=== PATIENT | male | born 1955 | race Caucasian/White ===

== ENCOUNTER 2016-11-10 05:14 | Inpatient (IN) | payer BC ==
[2016-11-05 10:19] LABS: BASOPHILS 0.2 %; BASOPHILS ABSOLUTE 0.02 10/3/uL (0.0-0.16); EOSINOPHILS 0.9 %; EOSINOPHILS ABSOLUTE 0.08 10/3/uL (0.0-0.53); HEMOGLOBIN 14.2 g/dL (13.6-17.8); IMMATURE GRANULOCYTES 0.2 %; IMMATURE GRANULOCYTES ABSOLUTE 0.02 10/3/uL (0.0-0.11); LYMPHOCYTES 27.9 %; LYMPHOCYTES ABSOLUTE 2.46 10/3/uL (0.67-4.30); MANUAL DIFF NO %; MEAN CORPUSCULAR HEMOGLOB 26.6 pg (26.0-34.0); MEAN CORPUSCULAR VOLUME 80.7 fL (80-100); MEAN PLATELET VOLUME 9.8 fL (9.2-13.0); MONOCYTES 8.2 %; MONOCYTES ABSOLUTE 0.72 10/3/uL (0.21-1.20); NEUTROPHILS 62.6 %; NEUTROPHILS ABSOLUTE 5.53 10/3/uL (2.02-8.40); PLATELET COUNT 371 10/3/uL (150-400); RBC DISTRIBUTION WIDTH 14.8 % (12.0-16.0); RED CELL COUNT 5.33 10/6/uL (4.7-6.1); WHITE BLOOD CELLS 8.8 10/3/uL (4.5-10.5)
[2016-11-05 10:22] LABS: ASCORBIC ACID (UR NOT ORDER) NEG (NEG); BILIRUBIN, URINE NEGATIVE (NEG); KETONE, URINE NEGATIVE (NEG); LEUKOCYTE ESTERASE(NOT OR NEG (NEG); WBC (NOT ORDERED) (RFLEX) 1 (0-5)
[2016-11-05 10:25] LABS: PROTIME (NOT ORD) 13.3 SEC (12.0-14.5)
[2016-11-05 10:37] LABS: % IRON SAT 14 % (20-50); A/G RATIO 1.1 (0.7-1.9); ALKALINE PHOSPHATASE 75 U/L (45-117); BUN (BLOOD UREA NITROGEN) 14 MG/DL (6-23); CALCIUM, SERUM 9.3 MG/DL (8.5-10.4); CHLORIDE, SERUM 103 MMOL/L (96-112); CO2 (CARBON DIOXIDE) 31 MMOL/L (24-34); CREATININE 0.91 MG/DL (0.70-1.30); GFR AFRICAN AMERICAN 105 ML/MIN (>=60); GFR NON AFRICAN AMERICAN 91 ML/MIN (>=60); GLOBULIN 3.8 G/DL (2.5-4.1); GLUCOSE, SERUM 139 MG/DL (60-99); IRON BINDING CAPACITY 436 MCG/DL (250-450); IRON, SERUM 61 MCG/DL (35-150); POTASSIUM, SERUM 3.9 MMOL/L (3.5-5.3); SGOT(AST) 11 U/L (5-40); SGPT(ALT) 21 U/L (5-65); SODIUM, SERUM 138 MMOL/L (135-148); TOTAL BILIRUBIN 0.4 MG/DL (0-1.2); TOTAL PROTEIN 7.8 G/DL (6.0-8.5)
--- NOTE | ~2016-11-10 | CN ---
Consultation Report [facility] [address] [place]. [address] NAME: GUNNER BE : 53 STATUS : ADM IN [facility] [id number] AGE: 61 ADM/REG DATE : 11/10/16 MR#: [id number] REPORT SERV DATE: 11/11/16 DICTATED BY: JERRI ARMSTRONG DATE: 11/11/16 REPORT STATUS : Draft TRANSCRIBED BY: MODL DATE: 11/11/16 CONSULTATION DATE OF CONSULTATION: 11/11/2016 REASON FOR CONSULTATION: Consulted for diabetes management. IDENTIFYING DATA: 1. Shredder Picker, Dr. Charbel Benavides. 2. Cardiovascular surgeon, Dr. Willis Beaulieu. HISTORY OF PRESENT ILLNESS: This is a pleasant 61-year-old male with a history of neuropathy, coronary artery disease, hypertension, high cholesterol, retinopathy, as well as hiatal hernia and renal calculi. The hospitalist group has been consulted to help management of diabetes, postoperative CABG surgery. The patient's history was obtained through interview with the patient coupled with review of iSirona and Huaat. PAST MEDICAL HISTORY: 1. Neuropathy. 2. Retinopathy. 3. Essential hypertension. 4. High cholesterol. 5. Coronary artery disease. 6. Hiatal hernia. 7. Renal calculi. 8. Diabetes type 2 at the age of his early 40s. HOME MEDICATIONS: 1. Norvasc 2.5 mg p.o. daily. 2. Aspirin 162 mg p.o. daily. 3. Coreg 6.25 mg p.o. twice a day. 4. Forxiga 10 mg p.o. every evening. 5. Neurontin 100 mg p.o. three times daily. 6. Lantus 60 units subcu every day at bedtime. 7. Humalog sliding scale before meals. 8. Cozaar 100 mg p.o. daily. 9. Metformin 1000 mg p.o. with breakfast and supper. 10.Prilosec 20 mg p.o. every evening. 11.Zocor 20 mg p.o. at bedtime. ALLERGIES: NO KNOWN ALLERGIES. THE PATIENT DOES STATE THAT HE HAS AN INTOLERANCE TO HYDROCODONE, WHICH MAKES HIM VERY NAUSEATED. Consultation Report [place] [id number] [facility] [place]. [address] NAME: GUNNER BE : 53 STATUS : ADM IN PAT#: [id number] AGE: 61 ADM/REG DATE : 11/10/16 MR#: [id number] REPORT SERV DATE: 11/11/16 DICTATED BY: JERRI ARMSTRONG DATE: 11/11/16 REPORT STATUS : Draft TRANSCRIBED BY: JACQUELINE DATE: 11/11/16 SOCIAL HISTORY: The patient is 42 years. Lives in a single-level home. Normally, has moderate activity level with no shortness of breath. He has two sons. No tobacco, alcohol, or illicit drug use. FAMILY HISTORY: 1. Father was positive for hyperlipidemia. 2. Mother was positive for hypertension, hyperlipidemia, and diabetes. 3. Sister was positive for hypertension and diabetes. 4. Brother was positive for diabetes. SURGICAL HISTORY: 1. Cardiac cath, 09/2016. 2. Right knee surgery, arthroscopy approximately at age of [age] years old. 3. Bilateral cataract surgeries in his 40s. 4. Laser surgery on his eyes approximately 15 years ago. REVIEW OF SYSTEMS: Negative other than what is included in HPI. The patient has no shortness of breath. No nausea or vomiting. No abdominal pain. No chest pain. No fever. Displays no confusion or agitation. He is alert and oriented x3. PHYSICAL EXAMINATION: VITAL SIGNS: From today, blood pressure 130/75, respiratory rate 18, heart rate 94, temperature 99.5, O2 saturation 92% on 3 L nasal cannula. GENERAL: This is a very pleasant 61-year-old male resting in bed, in no acute distress. Has his family at bedside. NEURO: His head is atraumatic, normocephalic. He is alert and oriented x3. His cranial nerves 2 through 12 are intact. His mood is pleasant and appropriate. NECK: Supple. Trachea is midline. No JVD noted. No obvious thyromegaly or lymphadenopathy. EENT: His sclerae are nonicteric. Pupils are equal and reactive to light. Nares are patent. Mucous membranes moist. Tongue is midline without deviation. His soft palate rises equally on phonation. CHEST: No pain with palpation. He does have a midline sternotomy dressing that is clean, dry, and intact. He also has a dressing intact to his previous right IJ site on the right side of his neck. LUNGS: Clear to auscultation bilaterally. The patient has normal respiratory effort. He has no increased work of breathing with conversation. He does have a JAYESH drain connected to the chest tube site with serosanguineous drainage noted. He is encouraged to use his incentive spirometer every one hour while awake to prevent atelectasis and pneumonia. CARDIOVASCULAR: S1, S2. No obvious murmurs, rubs, or gallops. His rhythm is regular. He is on telemetry, displays a sinus rhythm with a rate at 92. ABDOMEN: Soft, nontender. He has hypoactive bowel sounds. No palpable organomegaly. Last bowel movement noted was on 11/09/2016. He does state that he has a poor appetite in regard Consultation Report [facility] [address] [facility] [place]. [address] NAME: GUNNER BE : 53 STATUS : ADM IN [facility]#: [id number] AGE: 61 ADM/REG DATE : 11/10/16 MR#: [id number] REPORT SERV DATE: 11/11/16 DICTATED BY: JERRI ARMSTRONG DATE: 11/11/16 REPORT STATUS : Draft TRANSCRIBED BY: JACQUELINE DATE: 11/11/16 to food and did not eat much this evening. EXTREMITIES: Normal distal pulses. No calf tenderness. No edema. He has a right lower extremity saphenous vein site open to air. The edges are approximated at both sites. SKIN: Warm and dry. No unusual rashes or lesions. Normal color and turgor. PSYCH: The patient is pleasant and cooperative. Appropriate mood and affect. Surgical wound site dressings are clean, dry, and intact. He does have edges approximated on the right lower extremity, where he had saphenous vein graft. LABORATORY DATA: Sodium 145, potassium 4.4, chloride 112, BUN 20, creatinine 0.77, GFR 113, glucose was 65, calcium 8.1, magnesium 2.1. White blood cells 16.0, hemoglobin 11.0, hematocrit 33.3, platelets 160, INR 1.3. Present blood sugar is 137 on an insulin drip at 1 unit/hour. On 11/11/2016, the patient had an ECG that showed normal sinus rhythm and inferior infarct, age undetermined, with a rate at 75. ASSESSMENT/PLAN: This is a pleasant 61-year-old gentleman, who is status post CABG x3, left internal mammary artery, left anterior descending, reverse saphenous vein graft to obtuse marginal #2, reverse greater saphenous vein graft to posterior descending artery with Dr. Willis Beaulieu. 1. He is diabetic since he has been in his early 40s. He has diabetes type 2. He states he checks his blood sugars every a.m. He averages 90 to 140 on blood glucose. On the insulin drip, he used approximately 50 units over the last 24 hours, but his appetite has been poor tonight. He ate a few peaches. He is on heavy dose of Lantus at home, usually 60 units at bedtime as well as Forxiga and a Humalog sliding scale. We will have a music educator see him regarding diet and blood sugar monitoring. For tonight, we will give him Levemir 10 units subcu every p.m. We will give him NovoLog 2 units subcu before each meal and hold if his blood sugar is less than 115. We will also place him on a sliding scale insulin level 1 with hypoglycemic protocol and check a hemoglobin A1c in the morning. 2. Hypertension as well as a history of coronary artery disease and he is status post CABG x3. Aware. His management in hypertension and cardiac medications would be per Cardiology. 3. Hypercholesterolemia. Aware. The patient is continued on Lipitor daily. 4. Neuropathy. Aware. The patient is continued on Neurontin. 5. Labs, BMP, CBC, magnesium, phosphorus, portable chest x-ray, and hemoglobin A1c in the a.m. The hospitalist group would like to thank you for this consultation. Please let us know if we could be of further assistance. When the patient is eating more in the a.m., a.m. team may need to increase his insulin dosage for Levemir as well as his pre med before meals. /MODL Consultation Report [address] [place]. [address] NAME: GUNNER BE : 53 STATUS : ADM IN PAT#: [id number] AGE: 61 ADM/REG DATE : 11/10/16 MR#: [id number] REPORT SERV DATE: 11/11/16 DICTATED BY: JERRI ARMSTRONG DATE: 11/11/16 REPORT STATUS : Draft TRANSCRIBED BY: JACQUELINE DATE: 11/11/16 Jerri Armstrong NP / [id number] CC: MD Bk Johnston M.D.
--- NOTE | ~2016-11-10 | DS ---
Discharge Summary [facility] [address] [place]. [address] NAME: GUNNER BE : 53 STATUS : DIS IN PAT#: [id number] AGE: 61 ADM/REG DATE : 11/10/16 MR#: [id number] REPORT SERV DATE: 11/22/16 DICTATED BY: WILLIS LAZARO DATE: 11/21/16 REPORT STATUS : Draft TRANSCRIBED BY: MODSiria DATE: 11/21/16 Data Collection from hospitalization DISCHARGE DIAGNOSES: 1. Coronary artery disease, status post coronary artery bypass x3. 2. Hypertension. 3. Hyperlipidemia. 4. Type 2 diabetes mellitus. 5. Insomnia. 6. Neuropathy. 7. Retinopathy. 8. History of renal calculi. 9. History of hiatal hernia. CONSULTATIONS: 1. Jerri Dawson NP. 2. Charbel Benavides M.D. PROCEDURES PERFORMED: Median sternotomy; extracorporeal circulation; elective coronary artery bypass grafting x3 with left internal mammary artery to the left anterior descending artery, reverse greater saphenous vein graft to the obtuse marginal #2, reverse greater saphenous vein graft to the posterior descending artery; transesophageal echocardiogram; endoscopic vein harvest from the right leg on 11/10/2016. MEDICATIONS: Norvasc 2.5 mg daily, aspirin 162 mg daily, Lipitor 40 mg at bedtime, Forxiga 10 mg every evening, Neurontin 100 mg three times a day, [place] 5/325 one to two tablets every six hours as needed, Lantus 60 units subcutaneously every day at bedtime, Cozaar 100 mg daily, Glucophage 1000 mg with breakfast and supper, Lopressor 12.5 mg twice a day, Prilosec 20 mg every evening, and Restoril 15 mg at bedtime as needed. He was instructed not to continue Coreg or simvastatin. CONDITION AT DISCHARGE: Stable. DISPOSITION: The patient was discharged home on a low-cholesterol, low-sodium, 1800-calorie cardiac/diabetic diet with activities as instructed. He would follow up with Dr. Willis Lazaro on 12/09/[address] Charbel Benavides on 11/18/2016. He would follow up for cardiac rehab on 12/23/2016. HOSPITAL COURSE: This is a 61-year-old man who has a history of diabetes, hypertension, and hyperlipidemia with unstable anginal symptoms. He had undergone a stress test and then underwent cardiac catheterization, which revealed circumflex 100% occluded, the right coronary artery with collaterals from the right and 80% to 90% LAD. The patient was sent to the surgery office. Treatment options were discussed and it was elected to proceed with surgical intervention. He was admitted to the hospital at this time for further evaluation and treatment. Upon admission, he was taken to the operating room where he underwent the above-mentioned procedure. He tolerated this well, and there were no complications. On postop day #1, he Discharge Summary [place] [address] [place]. [address] NAME: GUNNER BE : 53 STATUS : DIS IN PAT#: [id number] AGE: 61 ADM/REG DATE : 11/10/16 MR#: [id number] REPORT SERV DATE: 11/22/16 DICTATED BY: WILLIS LAZARO DATE: 11/21/16 REPORT STATUS : Draft TRANSCRIBED BY: JACQUELINE DATE: 11/21/16 was seen by Jerri Dawson regarding diabetes management. White blood cell count was 16. He was going to undergo diabetes education. That evening, he was going to be given Levemir. He would also receive NovoLog subcutaneously before each meal. He was going to be placed on level 1 sliding scale insulin. Hemoglobin A1c was going to be checked. Lipitor was continued as well as Neurontin. The patient had good urine output after receiving a dose of Lasix. He was now on a low dose of Levophed. He was up sitting in a chair. He complained that his pain was worse with inspiration. He was seen by Dr. Charbel Benavides. The patient's lungs were clear. He had a normal respiratory effort. He had active bowel sounds. White blood cell count was 16. Nitroglycerin was held. Blood pressure control was borderline. Atorvastatin was continued. On 11/12/2016, he did complain of some nausea. Beta-maxi was restarted. White blood cell count was 22.6. Baldo drain was removed. He was encouraged to mobilize. Blood pressure was controlled. Sliding scale insulin continued. Levemir was increased. He underwent diabetes education. The next day, he was up sitting in a chair. He had no chest pain or shortness of breath. He said he felt much better. He was eating better. Blood sugars were under better control. Levemir had been increased. Sliding scale insulin continued. Discharge planning was performed. On 11/14/2016, he was alert and cooperative. Discharge instructions were given. Due to his improved and stable condition, he was discharged home with the above-stated instructions. Information collected by: Olivia Thompson I submit the above information as my discharge summary. TG/MODL Willis Lazaro MD / [id number] CC: MD Bk Johnston M.D. Gordon Graham, M.D.
--- NOTE | ~2016-11-10 | OP ---
Record Of Operation [facility] [address] [place]. [address] NAME: GUNNER BE : 53 STATUS : ADM IN PAT#: [id number] AGE: 61 ADM/REG DATE : 11/10/16 MR#: [id number] REPORT SERV DATE: 11/10/16 DICTATED BY: WILLIS LAZARO DATE: 11/10/16 REPORT STATUS : Draft TRANSCRIBED BY: MODL DATE: 11/10/16 DATE OF PROCEDURE: 11/10/2016 SURGEON: Willis Lazaro MD ASSISTANTS: Deirdre Demarco and Azul Landrum. ANESTHESIOLOGIST: Steven Jain M.D. REFERRING PHYSICIAN: Patrick Benitez M.D. PREOPERATIVE DIAGNOSES: 1. Unstable angina. 2. Three-vessel coronary artery disease. 3. Hypertension. 4. Hyperlipidemia. 5. Diabetes mellitus. POSTOPERATIVE DIAGNOSES: 1. Unstable angina. 2. Three-vessel coronary artery disease. 3. Hypertension. 4. Hyperlipidemia. 5. Diabetes mellitus. OPERATION PROCEDURE PERFORMED: 1. Median sternotomy. 2. Extracorporeal circulation. 3. Elective coronary artery bypass grafting x3, left internal mammary artery, left anterior descending, reverse greater saphenous vein graft to obtuse marginal #2, reverse greater saphenous vein graft to posterior descending artery. 4. GRABIEL. 5. Endoscopic vein harvest pf right leg. 6. Prevena dressing. TUBES: 24-British Baldo to the left pleural space and 32-British straight anterior mediastinal chest tube. COMPLICATIONS: None. POSTOPERATIVE CONDITION: Stable to CVICU. Total cross-clamp of 70 minutes. Total cardiopulmonary bypass time 90 minutes. INTRAOPERATIVE FINDINGS: Transesophageal echo showed no MR. Mild with a peak gradient of 12 with a mean gradient of 6 preserved EF. Record Of [facility] [address] [place]. [address] NAME: GUNNER BE : 53 STATUS : ADM IN PAT#: [id number] AGE: 61 ADM/REG DATE : 11/10/16 MR#: [id number] REPORT SERV DATE: 11/10/16 DICTATED BY: WILLIS LAZARO DATE: 11/10/16 REPORT STATUS : Draft TRANSCRIBED BY: MODL DATE: 11/10/16 ANATOMIC FINDINGS: Small obtuse marginal 1 and 2. The obtuse marginal #2 was larger so bypass graft was placed here. There was excellent vein, excellent MARIVEL, and good ventricle. The obtuse marginal #2 and the posterior descending artery anastomoses were difficult secondary to extreme collateral flow making the anastomoses more difficult. DETAILS OF CARDIOPULMONARY BYPASS GRAFTS: 1. Graft #1, left internal mammary artery, left anterior descending was 1.75 mm graft target. 2. Graft #2, reverse greater saphenous vein graft to obtuse marginal 2 is 1.4 mm target. 3. Graft #3, reverse greater saphenous vein graft to posterior descending artery is 1.75 mm target. There were good Doppler signals in all grafts. INDICATIONS FOR PROCEDURE: Mr. Be is a 61-year-old gentleman with a history of diabetes, hypertension, and hyperlipidemia with unstable anginal symptoms, who underwent a stress test and then underwent heart catheterization. Heart catheterization revealed circumflex 100% occluded. RCA with collaterals from the right and 80% to 90% LAD. The patient was sent to surgery office. Risks, benefits, and alternatives were discussed with the patient including but not limited to, bleeding, infection, stroke, , heart attack, need for future operations. All questions were answered. His STS risk score was calculated and discussed with the patient. Total risk less than 5%. Morbidity mortality less than 20%. All questions were answered. DETAILS OF PROCEDURE: The patient was brought to the operating room, placed supine on the operating room table. After satisfactory induction of general endotracheal anesthesia, he was prepped and draped in the usual sterile fashion, working simultaneously, median sternotomy was performed while endoscopic vein harvest was performed from the right leg. Skin and subcutaneous tissues were divided. Clavipectoral fascia was divided. The sternum was divided in the midline. Sternal retractor was placed. Thymic tissue was divided midline of the innominate vein. Pericardium was opened in the midline and along the diaphragm. A Rultract retractor was then placed and the internal mammary artery was harvested in a pedicle fashion from its takeoff under the subclavian vein to the bifurcation of the diaphragm. Systemic heparinization was achieved. After three minutes, the pedicle was clipped and divided the bifurcation of the diaphragm. A Rultract retractor was removed. A 24-British Baldo was placed in the left pleural space and exteriorized. A sternal retractor was placed. The pericardial well was created. Ascending aorta was cannulated through dual pursestring based innominate artery. Antegrade root vent cardioplegia tack was placed and a dual stage venous cannula was placed through pursestring in the right atrial appendage. The conduit was prepared for bypass. The internal mammary artery was brought through a wide V in the pericardium. Cardiopulmonary bypass was initiated after documentation of an adequate ACT. The targets were inspected and were as mentioned in the findings. Cross-clamp was brought up. Heart was arrested with cold antegrade cardioplegia for a total of 800 mL switching to cold antegrade cardioplegia for the remainder of the Cross-clamp and intermittent aliquots every 15 to 20 minutes throughout the remainder of the Cross-clamp. The heart was positioned and the posterior descending artery was opened. There was a lot of collateral flow making this anastomosis fairly difficult. Reverse greater saphenous vein graft was brought up and anastomosed to the posterior descending artery with Record Of Operation [facility] [address] [facility] [place]. [address] NAME: GUNNER BE : 53 STATUS : ADM IN [facility]#: [id number] AGE: 61 ADM/REG DATE : 11/10/16 MR#: [id number] REPORT SERV DATE: 11/10/16 DICTATED BY: WILLIS LAZARO DATE: 11/10/16 REPORT STATUS : Draft TRANSCRIBED BY: JACQUELINE DATE: 11/10/16 8-0 Surgipro. Vein was cut to length. Cardioplegia was administered. Attention was turned to the obtuse marginal #2. The obtuse marginal #2 was slightly larger and felt to be at least 1/10ths of a millimeter larger than the obtuse marginal #1. Vein was brought up reversed, and a running continuous anastomosis was performed after opening the obtuse marginal #2. There was again a lot of collateral flow making this anastomosis relatively difficult. Both anastomoses were checked with a 1 mm probe. Prior to completion of the anastomosis both proximally and distally, to ensure that the lumen of the artery was opened, this was cut after completion of this anastomosis and it was checked for hemostasis. The vein was cut to length and spatulated. Attention was turned to the internal mammary artery. Internal mammary artery was cut to length, spatulated, and the left anterior descending was opened and the anterior portion of the running continuous anastomosis was then performed using 8-0 Surgipro. Vein was attached to the epicardium of the heart in two places. Bulldog was released. There was excellent flow in the artery and in the proximal and distal internal mammary artery, left anterior descending, proximally and distally to the anastomosis. Two proximal aortotomies were performed and enlarged with a 5.2 mm punch and running continuous anastomoses were performed using 6-0 Prolene. Vein graft markers were placed. The grafts were de-aired. Cross-clamp was removed. The patient returned to normal sinus rhythm, was able to be weaned from cardiopulmonary bypass without incident. Protamine was administered. He was decannulated. All cannulation sites were oversewn with 4-0 Prolene. The pericardium was loosely reapproximated over the heart and the ascending aorta. A 32-British chest tube was placed under the sternum. Hemostasis was obtained. Sternum was then reapproximated using 8 stainless steel sternal wires. Some of these were double wires. Clavipectoral fascia was reapproximated using running #1 StrataFix. Subcutaneous tissues closed using running #1 StrataFix. Skin closed using 2-0 Quill. Prevena dressing was placed, and the patient was transferred to CVICU in critical stable condition. [facility]/MODL Willis Lazaro MD / [id number] CC: MD Charbel Johnston M.D. Andrew H Fowler, M.D.
[~2016-11-10 05:14] MED LIST: ASAB PO; COREG6 PO; COZAAR100 MG PO; FARXIGA10 PO; GLUCOPHAGE1000 MG PO; HUMALOG SC; LANTUS SC; NEUR100 PO; NORV25 PO; PRILO PO; ZOCOR20 PO
[2016-11-10 13:45] LABS: BE (BASE EXCESS) -1.3 MEQ/L (0 +/- 2.5); CARBOXYHEMOGLOBIN 0.8 % (0-3); HCO3 (ACTUAL BICARBONATE) 22.7 MEQ/L (23-27); HEMOBLOGIN CONTENT 13.4 G/DL (14-18); INSTRUMENT SERIAL # 11843; METHEMOGLOBIN 0.3 % (0-3); MODE SIMV; O2 CONTENT 18.2 VOL% (18-24); OPERATOR ID 18642; PCO2 (CO2 TENSION) 36 MMHG (35-45); PO2 (O2 TENSION) 100 MMHG (79-93); PRESSURE SUPPORT 0 cm.H2O; SAMPLE Arterial; TIDAL VOLUME 700 ML; pH 7.42 (7.37-7.43)
[2016-11-10 14:01] LABS: BASOPHILS 0.1 %; BASOPHILS ABSOLUTE 0.02 10/3/uL (0.0-0.16); EOSINOPHILS 0.1 %; EOSINOPHILS ABSOLUTE 0.02 10/3/uL (0.0-0.53); HEMOGLOBIN 12.6 g/dL (13.6-17.8); IMMATURE GRANULOCYTES 0.3 %; IMMATURE GRANULOCYTES ABSOLUTE 0.05 10/3/uL (0.0-0.11); LYMPHOCYTES 9.8 %; MEAN CORPUSCULAR HEMOGLOB 26.5 pg (26.0-34.0); MEAN PLATELET VOLUME 9.4 fL (9.2-13.0); MONOCYTES 4.9 %; MONOCYTES ABSOLUTE 0.85 10/3/uL (0.21-1.20); NEUTROPHILS 84.8 %; NEUTROPHILS ABSOLUTE 14.74 10/3/uL (2.02-8.40); RBC DISTRIBUTION WIDTH 14.6 % (12.0-16.0); RED CELL COUNT 4.76 10/6/uL (4.7-6.1)
[2016-11-10 14:02] LABS: HEMATOCRIT 37.1 % (40.0-51.0); MANUAL DIFF NO %; MEAN CORPUSCULAR VOLUME 77.9 fL (80-100); PLATELET COUNT 174 10/3/uL (150-400); WHITE BLOOD CELLS 17.4 10/3/uL (4.5-10.5)
[2016-11-10 14:14] LABS: INTERNATIONAL NORMAL RATI 1.3 UNITS (-); PARTIAL THROMBO TIME 28.1 SEC (22.5-37.2)
[2016-11-10 14:15] LABS: BUN (BLOOD UREA NITROGEN) 13 MG/DL (6-23); CHLORIDE, SERUM 110 MMOL/L (96-112); CO2 (CARBON DIOXIDE) 27 MMOL/L (24-34); CREATININE 0.92 MG/DL (0.70-1.30); GFR AFRICAN AMERICAN 103 ML/MIN (>=60); GFR NON AFRICAN AMERICAN 89 ML/MIN (>=60); POTASSIUM, SERUM 3.5 MMOL/L (3.5-5.3); SODIUM, SERUM 143 MMOL/L (135-148)
[2016-11-10 14:16] LABS: GLUCOSE, SERUM 105 MG/DL (60-99); PROTIME (NOT ORD) 16.1 SEC (12.0-14.5)
[2016-11-10 18:27] LABS: BE (BASE EXCESS) -2.8 MEQ/L (0 +/- 2.5); CARBOXYHEMOGLOBIN 0.3 % (0-3); HCO3 (ACTUAL BICARBONATE) 22.6 MEQ/L (23-27); HEMOBLOGIN CONTENT 12.6 G/DL (14-18); INSTRUMENT SERIAL # 11843; METHEMOGLOBIN 0.4 % (0-3); O2 CONTENT 16.2 VOL% (18-24); PCO2 (CO2 TENSION) 42 MMHG (35-45); PO2 (O2 TENSION) 69 MMHG (79-93); pH 7.35 (7.37-7.43)
[2016-11-10 18:28] LABS: OPERATOR ID 18642; SAMPLE Arterial
[2016-11-10 22:12] LABS: HEMATOCRIT 33.5 % (40.0-51.0); HEMOGLOBIN 11.3 g/dL (13.6-17.8)
[2016-11-10 22:23] LABS: CALCIUM, SERUM 8.4 MG/DL (8.5-10.4); CHLORIDE, SERUM 112 MMOL/L (96-112); CO2 (CARBON DIOXIDE) 26 MMOL/L (24-34); CREATININE 0.81 MG/DL (0.70-1.30); GFR AFRICAN AMERICAN 110 ML/MIN (>=60); GFR NON AFRICAN AMERICAN 95 ML/MIN (>=60); GLUCOSE, SERUM 93 MG/DL (60-99); POTASSIUM, SERUM 4.1 MMOL/L (3.5-5.3); SODIUM, SERUM 144 MMOL/L (135-148)
[2016-11-10 22:24] LABS: BUN (BLOOD UREA NITROGEN) 18 MG/DL (6-23)
[2016-11-11 03:42] LABS: BASOPHILS 0 %; EOSINOPHILS 0 %; HEMATOCRIT 33.3 % (40.0-51.0); IMMATURE GRANULOCYTES 0.3 %; IMMATURE GRANULOCYTES ABSOLUTE 0.04 10/3/uL (0.0-0.11); LYMPHOCYTES 9.2 %; LYMPHOCYTES ABSOLUTE 1.47 10/3/uL (0.67-4.30); MANUAL DIFF NO %; MEAN CORPUSCULAR HEMOGLOB 26.4 pg (26.0-34.0); MEAN PLATELET VOLUME 9.4 fL (9.2-13.0); MONOCYTES 9.1 %; MONOCYTES ABSOLUTE 1.46 10/3/uL (0.21-1.20); NEUTROPHILS 81.4 %; NEUTROPHILS ABSOLUTE 12.99 10/3/uL (2.02-8.40); PLATELET COUNT 160 10/3/uL (150-400); RBC DISTRIBUTION WIDTH 14.8 % (12.0-16.0); RED CELL COUNT 4.16 10/6/uL (4.7-6.1)
[2016-11-11 03:55] LABS: BUN (BLOOD UREA NITROGEN) 20 MG/DL (6-23); CALCIUM, SERUM 8.1 MG/DL (8.5-10.4); CHLORIDE, SERUM 112 MMOL/L (96-112); CO2 (CARBON DIOXIDE) 27 MMOL/L (24-34); CREATININE 0.77 MG/DL (0.70-1.30); GFR AFRICAN AMERICAN 113 ML/MIN (>=60); GFR NON AFRICAN AMERICAN 97 ML/MIN (>=60); POTASSIUM, SERUM 4.2 MMOL/L (3.5-5.3); SODIUM, SERUM 145 MMOL/L (135-148)
[2016-11-11 03:59] LABS: GLUCOSE, SERUM 65 MG/DL (60-99)
[2016-11-11 08:44] LABS: POTASSIUM, SERUM 4.4 MMOL/L (3.5-5.3)
[2016-11-11 21:30] LABS: HEMATOCRIT 36.2 % (40.0-51.0); HEMOGLOBIN 11.8 g/dL (13.6-17.8)
[2016-11-12 04:35] LABS: BASOPHILS 0 %; BASOPHILS ABSOLUTE 0.01 10/3/uL (0.0-0.16); EOSINOPHILS 0 %; HEMATOCRIT 35.5 % (40.0-51.0); HEMOGLOBIN 11.5 g/dL (13.6-17.8); IMMATURE GRANULOCYTES 0.4 %; IMMATURE GRANULOCYTES ABSOLUTE 0.08 10/3/uL (0.0-0.11); LYMPHOCYTES 9.6 %; LYMPHOCYTES ABSOLUTE 2.17 10/3/uL (0.67-4.30); MEAN CORPUS HGB CONC 32.4 g/dL (32.0-36.0); MEAN CORPUSCULAR HEMOGLOB 26.6 pg (26.0-34.0); MEAN PLATELET VOLUME 10.6 fL (9.2-13.0); MONOCYTES 15.1 %; MONOCYTES ABSOLUTE 3.42 10/3/uL (0.21-1.20); NEUTROPHILS 74.9 %; NEUTROPHILS ABSOLUTE 16.91 10/3/uL (2.02-8.40); PLATELET COUNT 191 10/3/uL (150-400); RBC DISTRIBUTION WIDTH 15.7 % (12.0-16.0); RED CELL COUNT 4.33 10/6/uL (4.7-6.1)
[2016-11-12 04:37] LABS: MANUAL DIFF NO %; WHITE BLOOD CELLS 22.6 10/3/uL (4.5-10.5)
[2016-11-12 04:45] LABS: BUN (BLOOD UREA NITROGEN) 34 MG/DL (6-23); CALCIUM, SERUM 9.3 MG/DL (8.5-10.4); CHLORIDE, SERUM 106 MMOL/L (96-112); CO2 (CARBON DIOXIDE) 26 MMOL/L (24-34); CREATININE 1.28 MG/DL (0.70-1.30); GFR AFRICAN AMERICAN 69 ML/MIN (>=60); GFR NON AFRICAN AMERICAN 60 ML/MIN (>=60); GLUCOSE, SERUM 226 MG/DL (60-99); PHOSPHORUS, SERUM 3.5 MG/DL (2.5-4.5); POTASSIUM, SERUM 5.3 MMOL/L (3.5-5.3); SODIUM, SERUM 140 MMOL/L (135-148)
[2016-11-13 05:17] LABS: BASOPHILS 0.1 %; BASOPHILS ABSOLUTE 0.01 10/3/uL (0.0-0.16); EOSINOPHILS 0 %; HEMOGLOBIN 10.5 g/dL (13.6-17.8); IMMATURE GRANULOCYTES 0.3 %; IMMATURE GRANULOCYTES ABSOLUTE 0.05 10/3/uL (0.0-0.11); LYMPHOCYTES 15.9 %; LYMPHOCYTES ABSOLUTE 3.02 10/3/uL (0.67-4.30); MEAN CORPUS HGB CONC 32.9 g/dL (32.0-36.0); MEAN CORPUSCULAR HEMOGLOB 26.4 pg (26.0-34.0); MEAN CORPUSCULAR VOLUME 80.4 fL (80-100); MEAN PLATELET VOLUME 10.4 fL (9.2-13.0); MONOCYTES 16.2 %; MONOCYTES ABSOLUTE 3.09 10/3/uL (0.21-1.20); NEUTROPHILS 67.5 %; NEUTROPHILS ABSOLUTE 12.86 10/3/uL (2.02-8.40); PLATELET COUNT 198 10/3/uL (150-400); RBC DISTRIBUTION WIDTH 15.4 % (12.0-16.0); RED CELL COUNT 3.97 10/6/uL (4.7-6.1)
[2016-11-13 05:27] LABS: HEMATOCRIT 31.9 % (40.0-51.0); MANUAL DIFF NO %
[2016-11-13 05:34] LABS: BUN (BLOOD UREA NITROGEN) 33 MG/DL (6-23); CALCIUM, SERUM 8.9 MG/DL (8.5-10.4); CHLORIDE, SERUM 102 MMOL/L (96-112); CO2 (CARBON DIOXIDE) 29 MMOL/L (24-34); CREATININE 1.07 MG/DL (0.70-1.30); GFR AFRICAN AMERICAN 86 ML/MIN (>=60); GFR NON AFRICAN AMERICAN 74 ML/MIN (>=60); POTASSIUM, SERUM 4.3 MMOL/L (3.5-5.3); SODIUM, SERUM 138 MMOL/L (135-148)
[2016-11-13 05:35] LABS: GLUCOSE, SERUM 154 MG/DL (60-99)
[2016-11-14 05:36] LABS: BUN (BLOOD UREA NITROGEN) 27 MG/DL (6-23); CALCIUM, SERUM 8.4 MG/DL (8.5-10.4); CHLORIDE, SERUM 100 MMOL/L (96-112); CO2 (CARBON DIOXIDE) 32 MMOL/L (24-34); CREATININE 1.01 MG/DL (0.70-1.30); GFR AFRICAN AMERICAN 92 ML/MIN (>=60); GFR NON AFRICAN AMERICAN 79 ML/MIN (>=60); GLUCOSE, SERUM 258 MG/DL (60-99); POTASSIUM, SERUM 3.8 MMOL/L (3.5-5.3); SODIUM, SERUM 136 MMOL/L (135-148)
[2016-11-14] MEDS ORDERED: REST15 PO (12:11)
[2016-11-14] MEDS ORDERED: LIPITOR40 PO (12:12)
[2016-11-14] MEDS ORDERED: LOP25 PO (12:12)
[2016-11-14] MEDS ORDERED: NORCO1 TA1 PO (12:12)
== END 2016-11-14 14:28 | disposition home or self-care (01) | DRG 236 ==
LOC: SDC/OF 05:14 → CVICU 13:35 → 5NO 11-11 17:45
PROVIDERS: Anesthesiology; Internal Medicine; Thoracic Surgery (Cardiothoracic Vascular Surgery)
PROC: 5A1221Z Performance of Cardiac Output, Continuous (ICD-10-PCS; 2016-11-10)
PROC: B246ZZ4 Ultrasonography of Right and Left Heart, Transesophageal (ICD-10-PCS; 2016-11-10)
PROC: 021109W Bypass Coronary Artery, Two Arteries from Aorta with Autologous Venous Tissue, Open Approach (ICD-10-PCS; principal; 2016-11-10 07:30)
PROC: 0210099 Bypass Coronary Artery, One Artery from Left Internal Mammary with Autologous Venous Tissue, Open Approach (ICD-10-PCS; 2016-11-10 07:30)
PROC: 06BP4ZZ Excision of Right Saphenous Vein, Percutaneous Endoscopic Approach (ICD-10-PCS; 2016-11-10 07:30)
DX: I25.110 Atherosclerotic heart disease of native coronary artery with unstable angina pectoris (principal); E11.40 Type 2 diabetes mellitus with diabetic neuropathy, unspecified; I10 Essential (primary) hypertension; E78.5 Hyperlipidemia, unspecified; E78.00 Pure hypercholesterolemia, unspecified; E11.319 Type 2 diabetes mellitus with unspecified diabetic retinopathy without macular edema; Z87.442 Personal history of urinary calculi; K44.9 Diaphragmatic hernia without obstruction or gangrene; Z79.4 Long term (current) use of insulin; Z79.84 Long term (current) use of oral hypoglycemic drugs
CPT/HCPCS: 36415; 71010; 71020; 80048; 80053; 81001; 82330; 82803; 82805; 82947; 82962; 83036; 83540; 83550; 83735; 84100; 84132; 84295; 85014; 85018; 85025; 85347; 85610; 85730; 86850; 86900; 86901; 86920; 87641; 93005; 93312; 93320; 93325; 94002; 94640; 94660; 94770; A9270-GY; C1713; C1751; C1769; C1894; J0690; J1644; J1940; J2150; J2250; J2370; J2405; J2440; J2550; J2720; J2930; J3010; J3370; J3475; J3480; P9045; P9047